=== PATIENT | female | born 1960 | race Caucasian/White ===

== ENCOUNTER → 2016-09-25 | Outpatient (CLI) | payer BC ==
--- NOTE | 2016-09-27 07:38 | MM ---
Reason for exam: screening (asymptomatic). Last mammogram was performed 1 year ago. History: Patient is postmenopausal. Took hormonal contraceptives for 6 years beginning at age 18. Physical Findings: A clinical breast exam by your physician is recommended on an annual basis and results should be correlated with mammographic findings. MG Screening Mammo w CAD Bilateral CC and MLO view(s) were taken. Prior study comparison: September 16, 2015, bilateral MG screening mammo w CAD. August 30, 2014, bilateral MG screening mammo w CAD. The breast tissue is heterogeneously dense. This may lower the sensitivity of mammography. No significant changes when compared with prior studies. ASSESSMENT: Benign, BI-RAD 2 RECOMMENDATION: Routine screening mammogram of both breasts in 1 year.
== END | disposition home or self-care (01) ==
LOC: RADMAMWWP 16:26
PROVIDERS: ATTEND Obstetrics & Gynecology
DX: Z12.31 Encounter for screening mammogram for malignant neoplasm of breast (principal)

== ENCOUNTER → 2017-10-15 | Outpatient (CLI) | payer BC ==
--- NOTE | 2017-10-17 13:10 | MM ---
Reason for exam: screening (asymptomatic). Last mammogram was performed 1 year and 1 month ago. History: Patient is postmenopausal. Took hormonal contraceptives for 6 years beginning at age 18. Physical Findings: A clinical breast exam by your physician is recommended on an annual basis and results should be correlated with mammographic findings. MG Screening Mammo w CAD Bilateral CC and MLO view(s) were taken. Prior study comparison: September 25, 2016, bilateral MG screening mammo w CAD. September 16, 2015, bilateral MG screening mammo w CAD. The breast tissue is heterogeneously dense. This may lower the sensitivity of mammography. Inferior left breast regional calcifications were present previously. No significant changes when compared with prior studies. ASSESSMENT: Negative, BI-RAD 1 RECOMMENDATION: Routine screening mammogram of both breasts in 1 year.
== END | disposition home or self-care (01) ==
LOC: RADMAMWWP 15:07
PROVIDERS: ATTEND Obstetrics & Gynecology
DX: Z12.31 Encounter for screening mammogram for malignant neoplasm of breast (principal)
CPT/HCPCS: 77067

== ENCOUNTER → 2018-01-06 | Outpatient (CLI) | payer BC ==
--- NOTE | 2018-01-07 09:05 | BD ---
EXAMINATION TYPE: Axial Bone Density DATE OF EXAM: 01/06/2018 COMPARISON: DEXA bone scan September 19, 2012 CLINICAL HISTORY: Age-related osteoporosis per order Height: 63 Weight: 174.6 FRAX RISK QUESTIONS: Alcohol (3 or more units per day): no Family History (Parent hip fracture): no Glucocorticoids (More than 3mos): no (Ex: prednisone, prednisolone, methylprednisolone, dexamethasone, and hydrocortisone). History of Fracture in Adulthood: no Secondary Osteoporosis: 1. Type 1 Diabetes: no 2. Hyperthyroidism: no 3. Menopause before 45: yes 4. Malnutrition: no 5. Chronic liver disease: no Rheumatoid Arthritis: no Current Tobacco Use: no RISK FACTORS HISTORY OF: Family History of Osteoporosis: yes Active: yes Diet low in dairy products/other sources of calcium: no Postmenopausal woman: hysterectomy 1995 Lost more than 2 inches in height since high school: no Frequent falls: no MEDICATIONS: metformin, Toprol, cholesterol meds Additional History: EXAM MEASUREMENTS: Bone mineral densitometry was performed using the [employer] System. Bone mineral density as measured about the Lumbar spine is: ----- L1-L4(G/cm2): 1.506 T Score Values are as follows: ----- L2: 3.3 ----- L3: 2.9 ----- L4: 2.1 ----- L1-L4: 2.7 Bone mineral density has: decreased -3.1 % since study of: 09.19.2012 Bone mineral density about the R hip (g/cm2): 1.265 Bone mineral density about the L hip (g/cm2): 1.363 T Score values are as follows: -----R Neck: 1.6 -----L Neck: 2.3 -----R Total: 1.6 -----L Total: 1.6 Bone mineral density has: decreased -2.3 % since study of: 09.19.2012 IMPRESSION: Normal (Values between +1 and -1 indicate normal bone mass). Consider repeating this study in 5 year s or sooner if there is some new clinical indication. NOTE: T-SCORE=SD OF THE YOUNG ADULT MEAN.
== END | disposition home or self-care (01) ==
LOC: RADBDWWP 15:59
PROVIDERS: ATTEND Internal Medicine Geriatric Medicine
DX: M81.0 Age-related osteoporosis without current pathological fracture (principal)
CPT/HCPCS: 77080

== ENCOUNTER → 2018-12-03 | Outpatient (CLI) | payer BC ==
--- NOTE | 2018-12-04 11:49 | MM ---
Reason for exam: screening (asymptomatic). Last mammogram was performed 1 year and 2 months ago. History: Patient is postmenopausal. Took hormonal contraceptives for 6 years beginning at age 18. Physical Findings: A clinical breast exam by your physician is recommended on an annual basis and results should be correlated with mammographic findings. MG Screening Mammo w CAD Bilateral CC and MLO view(s) were taken. Prior study comparison: October 15, 2017, bilateral MG screening mammo w CAD. September 25, 2016, bilateral MG screening mammo w CAD. The breast tissue is heterogeneously dense. This may lower the sensitivity of mammography. No significant changes when compared with prior studies. ASSESSMENT: Negative, BI-RAD 1 RECOMMENDATION: Routine screening mammogram of both breasts in 1 year. Patient should continue monthly self breast exams. A negative report should not preclude additional follow up of suspicious palpable abnormalities.
== END ==
LOC: RADMAMWWP 15:34
PROVIDERS: ATTEND Obstetrics & Gynecology
DX: Z12.31 Encounter for screening mammogram for malignant neoplasm of breast (principal)
CPT/HCPCS: 77067

== ENCOUNTER → 2020-03-02 | Outpatient (CLI) | payer BC ==
--- NOTE | 2020-03-03 12:17 | MM ---
Reason for exam: screening (asymptomatic). Last mammogram was performed 1 year and 3 months ago. History: Patient is postmenopausal and history of other cancer. Took hormonal contraceptives for 6 years beginning at age 18. Physical Findings: A clinical breast exam by your physician is recommended on an annual basis and results should be correlated with mammographic findings. MG Screening Mammo w CAD Bilateral CC and MLO view(s) were taken. Prior study comparison: December 03, 2018, bilateral MG screening mammo w CAD. October 15, 2017, bilateral MG screening mammo w CAD. The breast tissue is heterogeneously dense. This may lower the sensitivity of mammography. Benign appearing calcifications in the right breast. No significant changes when compared with prior studies. ASSESSMENT: Benign, BI-RAD 2 RECOMMENDATION: Routine screening mammogram of both breasts in 1 year.
== END | disposition home or self-care (01) ==
LOC: RADMAMWWP 09:45
PROVIDERS: ATTEND Obstetrics & Gynecology
DX: Z12.31 Encounter for screening mammogram for malignant neoplasm of breast (principal)
CPT/HCPCS: 77067

== ENCOUNTER → 2020-04-08 | Outpatient (CLI) | payer BC ==
--- NOTE | 2020-04-08 12:15 | CT ---
EXAMINATION TYPE: CT brain wo con DATE OF EXAM: 04/08/2020 COMPARISON: Syncope, collapse HISTORY: Syncope and collapse CT DLP: 1029.90 mGycm Automated exposure control for dose reduction was used. FINDINGS: There is no hemorrhage or hydrocephalus present. Vascular calcifications are present. Cortical atroph y is likely age-related. Periventricular white matter shows patchy low attenuation. Calvarium is inta ct. Inflammatory change present in the sphenoid sinus, right maxillary sinus, mastoid air cells are w ell aerated. IMPRESSION: AGE-RELATED CHANGES OF ATROPHY AND PROBABLE CHRONIC SMALL VESSEL ISCHEMIA. SINUS DISEASE.
== END | disposition home or self-care (01) ==
LOC: RADCTMAIN 11:29
PROVIDERS: ATTEND Nurse Practitioner Family
DX: G31.1 Senile degeneration of brain, not elsewhere classified (principal)
CPT/HCPCS: 70450

== ENCOUNTER → 2020-04-15 | Outpatient (CLI) | payer BC ==
--- NOTE | 2020-04-15 13:13 | US ---
EXAMINATION TYPE: US carotid duplex BILAT DATE OF EXAM: 04/15/2020 COMPARISON: NONE CLINICAL HISTORY: R55 Syncope Collapse. dizziness EXAM MEASUREMENTS: RIGHT: Peak Systolic Velocity (PSV) cm/sec ----- Right CCA: 73.9 ----- Right ICA: 102 ----- Right ECA: 104 ICA/CCA ratio: 1.38 RIGHT: End Diastole cm/sec ----- Right CCA: 20.5 ----- Right ICA: 43.5 ----- Right ECA: 24.2 LEFT: Peak Systolic Velocity (PSV) cm/sec ----- Left CCA: 90.1 ----- Left ICA: 101 ----- Left ECA: 87.8 ICA/CCA ratio: 1.12 LEFT: End Diastole cm/sec ----- Left CCA: 38.5 ----- Left ICA: 48.3 ----- Left ECA: 18.7 VERTEBRALS (direction of flow): Right Vertebral: Antegrade Left Vertebral: Antegrade Rhythm: Normal Mild plaque bilateral bifurcations. No evidence of significant stenosis IMPRESSION: 1. No significant flow-limiting stenosis Criteria for Assigning % of Stenosis / Diameter reduction (Estimation based on the indirect measurements of the internal carotid artery velocities (ICA PSV). 1. Normal (no stenosis)=ICA PSV < 125 cm/s: ratio < 2.0: ICA EDV<40 cm/s. 2. Less than 50% stenosis=ICA PSV < 125 cm/s: ratio < 2.0: ICA EDV<40 cm/s. 3. 50 to 69% stenosis=ICA PSV of 125 to 230 cm/s: ration 2.0 ? 4.0: ICA EDV 40-100 cm/s. 4. Greater than 70% stenosis to near occlusion= ICA PSV > 230 cm/s: ratio > 4.0: ICA EDV > 100 cm/s. 5. Near occlusion= ICA PSV velocities may be low or undetectable: variable ratio and ICA EDV. 6. Total occlusion=unable to detect flow.
--- NOTE | 2020-04-16 10:00 | ECHOF ---
Referral Reason:R55 syncope and collapse MEASUREMENTS -------- HEIGHT: 160.0 cm WEIGHT: 71.7 kg BP: RVIDd: 2.6 cm (< 3.3) IVSd: 1.2 cm (0.6 - 1.1) LVIDd: 3.8 cm (3.9 - 5.3) LVPWd: 1.3 cm (0.6 - 1.1) IVSs: 1.6 cm LVIDs: 2.1 cm LVPWs: 1.9 cm LAESV Index (A-L): 16.16 ml/m Ao Diam: 2.6 cm (2.0 - 3.7) AV Cusp: 2.0 cm (1.5 - 2.6) MV EXCURSION: 18.036 mm (> 18.000) MV EF SLOPE: 71 mm/s (70 - 150) EPSS: 0.6 cm MV E Chris: 0.59 m/s MV DecT: 202 ms MV A Chris: 0.73 m/s MV E/A Ratio: 0.82 RAP: 5.00 mmHg RVSP: 32.78 mmHg FINDINGS -------- This was a technically adequate study. The left ventricular size is normal. There is mild concentric left ventricular hypertrophy. Overa ll left ventricular systolic function is normal with, an EF between 55 - 60 %. The diastolic fillin g pattern is normal for the age of the patient 9.30. The right ventricle is normal in size. Normal LA size by volume 22+/-6 ml/m2. The right atrial size is normal. Interatrial septal aneurysm. The aortic valve is trileaflet and appears structurally normal. There is no evidence of aortic regu rgitation. There is no evidence of aortic stenosis. Mild mitral regurgitation is present. Mild tricuspid regurgitation present. There is borderline pulmonary artery hypertension. The righ t ventricular systolic pressure, as measured by Doppler, is 32.78mmHg. There is no pulmonic regurgitation present. The aortic root size is normal. Normal inferior vena cava with normal inspiratory collapse consistent with estimated right atrial pre ssure of 5 mmHg. There is no pericardial effusion. CONCLUSIONS -------- 1. The left ventricular size is normal. 2. There is mild concentric left ventricular hypertrophy. 3. Overall left ventricular systolic function is normal with, an EF between 55 - 60 %. 4. The diastolic filling pattern is normal for the age of the patient 9.30 5. Interatrial septal aneurysm. 6. Mild mitral regurgitation is present. 7. Mild tricuspid regurgitation present. 8. There is borderline pulmonary artery hypertension. 9. The right ventricular systolic pressure, as measured by Doppler, is 32.78mmHg. CORPORATE SAFETY MANAGER: Mala Barry RDCS
== END | disposition home or self-care (01) ==
LOC: RADUSWWP 12:28
PROVIDERS: ATTEND Internal Medicine Geriatric Medicine
DX: R55 Syncope and collapse (principal)
CPT/HCPCS: 93306; 93880

== ENCOUNTER → 2021-04-10 | Outpatient (CLI) | payer BC ==
--- NOTE | 2021-04-12 09:48 | MM ---
Reason for exam: screening (asymptomatic). Last mammogram was performed 1 year and 1 month ago. History: Patient is postmenopausal and history of other cancer. Took hormonal contraceptives for 6 years beginning at age 18. Physical Findings: A clinical breast exam by your physician is recommended on an annual basis and results should be correlated with mammographic findings. MG Screening Mammo w CAD Bilateral CC and MLO view(s) were taken. Prior study comparison: March 02, 2020, bilateral MG screening mammo w CAD. December 03, 2018, bilateral MG screening mammo w CAD. The breast tissue is extremely dense which could obscure a lesion on mammography. No significant changes when compared with prior studies. ASSESSMENT: Benign, BI-RAD 2 RECOMMENDATION: Routine screening mammogram of both breasts in 1 year.
== END | disposition home or self-care (01) ==
LOC: RADMAMWWP 15:47
PROVIDERS: ATTEND Obstetrics & Gynecology
DX: Z85.89 Personal history of malignant neoplasm of other organs and systems (principal)
CPT/HCPCS: 77067

== ENCOUNTER 2021-04-26 10:09 | Inpatient (IN) | payer BC ==
[2021-04-26] MEDS ORDERED: SODIUM CHLORIDE 0.9% 1,000 ML IV STA (10:38)
--- NOTE | 2021-04-26 10:43 | ED ---
Dizziness HPI - General Chief Complaint: Dizziness Stated Complaint: dehydration Time Seen by Provider: 04/26/21 10:21 Source: patient, RN notes reviewed Mode of arrival: wheelchair Limitations: no limitations - History of Present Illness Initial Comments: 61-year-old female who presents with complaints of dizziness weakness rhinorrhea decreased oral intake nausea vomiting no stools she states she's had a probable loose stools for many years however she has nausea vomiting decreased oral intake she is noted upon arrival have a low blood pressure. She does states she had bleeding recently quit drinking 4 days ago. She also states his symptoms started the previous day. She does also state that when she tries walking at times her left leg shakes a bit. No fevers or sweats. No recent falls no head neck or back pain. The loss of function to her upper or lower extremities. MD Complaint: dizziness, lightheadedness, difficulty walking, other - Related Data Home Medications Medication Instructions Recorded Confirmed Loratadine [Claritin] 10 mg PO DAILY 04/26/21 04/26/21 Metoprolol Succinate (ER) [Toprol 50 mg PO DAILY 04/26/21 04/26/21 Xl] Pseudoephedrine [Sudafed] 30 mg PO Q4H PRN 04/26/21 04/26/21 Simvastatin [Zocor] 20 mg PO HS 04/26/21 04/26/21 lisinopriL 20 mg PO DAILY 04/26/21 04/26/21 metFORMIN HCL [Glucophage XR] 750 mg PO DAILY 04/26/21 04/26/21 Allergies Allergy/AdvReac Type Severity Reaction Status Date / Time Sulfa (Sulfonamide Allergy Unknown Verified 04/26/21 11:21 Antibiotics) Childhood Review of Systems ROS Statement: Those systems with pertinent positive or pertinent negative responses have been documented in the HPI. ROS Other: All systems not noted in ROS Statement are negative. Past Medical History Past Medical History: Diabetes Mellitus, Hypertension History of Any Multi-Drug Resistant Organisms: None Reported Past Surgical History: Hysterectomy, Tubal Ligation Past Psychological History: No Psychological Hx Reported Smoking Status: Never smoker Past Alcohol Use History: Daily, Heavy Past Drug Use History: None Reported General Exam - General Exam Comments Initial Comments: This a well-developed well-nourished awake alert oriented 3 female Limitations: no limitations General appearance: alert, in no apparent distress Head exam: Present: atraumatic, normocephalic, normal inspection Eye exam: Present: normal appearance, PERRL, EOMI. Absent: scleral icterus, conjunctival injection, periorbital swelling ENT exam: Present: mucous membranes dry Neck exam: Present: normal inspection. Absent: tenderness, meningismus, lymphadenopathy Respiratory exam: Present: normal lung sounds bilaterally. Absent: respiratory distress, wheezes, rales, rhonchi, stridor Cardiovascular Exam: Present: regular rate, normal rhythm, normal heart sounds. Absent: systolic murmur, diastolic murmur, rubs, gallop, clicks GI/Abdominal exam: Present: soft, normal bowel sounds. Absent: distended, tenderness, guarding, rebound, rigid Extremities exam: Present: normal inspection, full ROM, normal capillary refill. Absent: tenderness, pedal edema, joint swelling, calf tenderness Back exam: Present: normal inspection Neurological exam: Present: alert, oriented X3, CN II-XII intact Psychiatric exam: Present: normal affect, normal mood Skin exam: Present: warm, dry, intact, normal color. Absent: rash Course Vital Signs 04/26/21 04/26/21 04/26/21 10:12 11:00 11:30 Temperature 98.6 F Pulse Rate 82 77 73 Respiratory 18 18 16 Rate Blood Pressure 85/55 98/62 93/53 O2 Sat by Pulse 100 99 100 Oximetry 04/26/21 04/26/21 04/26/21 12:00 12:30 13:00 Temperature Pulse Rate 76 79 81 Respiratory 16 18 18 Rate Blood Pressure 98/61 96/58 92/56 O2 Sat by Pulse 99 100 100 Oximetry EKG Findings - EKG Results: EKG: interpreted by [facility], sinus rhythm (Sinus rhythm 80 VA interval 180 QRS duration 102 QT since QTC 42/[address] configuration inferior and an terior leads) Medical Decision Making - Medical Decision Making I did discuss [employer] the patient family as well as with Dr. Mata patient be admitted for inpatient evaluation of acute kidney injury dehydration suspected alcohol withdrawal. Lactic acid elevation likely secondary to dehydration no infectious processes identified at this time - Lab Data Result diagrams: 04/26/21 10:50 04/26/21 10:50 Lab Results 04/26/21 04/26/21 04/26/21 Range/Units 10:50 10:50 10:50 WBC 4.2 (3.8-10.6) k/uL RBC 3.25 L (3.80-5.40) m/uL Hgb 11.7 (11.4-16.0) gm/dL Hct 34.4 (34.0-46.0) % MCV 105.7 H (80.0-100.0) fL MCH 36.1 H (25.0-35.0) pg MCHC 34.1 (31.0-37.0) g/dL RDW 20.6 H (11.5-15.5) % Plt Count 90 L (150-450) k/uL MPV 9.9 Neutrophils % 62 % Lymphocytes % 21 % Monocytes % 11 % Eosinophils % 2 % Basophils % 1 % Neutrophils # 2.6 (1.3-7.7) k/uL Lymphocytes # 0.9 L (1.0-4.8) k/uL Monocytes # 0.5 (0-1.0) k/uL Eosinophils # 0.1 (0-0.7) k/uL Basophils # 0.0 (0-0.2) k/uL Manual Slide Review Performed Anisocytosis Moderate Macrocytosis Marked A Sodium 129 L (137-145) mmol/L Potassium 4.2 (3.5-5.1) mmol/L Chloride 91 L (98-107) mmol/L Carbon Dioxide 25 (22-30) mmol/L Anion Gap 13 mmol/L BUN 28 H (7-17) mg/dL Creatinine 2.49 H (0.52-1.04) mg/dL Est GFR (CKD-EPI)AfAm 23 (>60 ml/min/1.73 sqM) Est GFR (CKD-EPI)NonAf 20 (>60 ml/min/1.73 sqM) Glucose 282 H (74-99) mg/dL Lactic Ac Sepsis Rflx Plasma Lactic Acid [place] (0.7-2.0) mmol/L Calcium 9.7 (8.4-10.2) mg/dL Magnesium 0.9 L* (1.6-2.3) mg/dL Total Bilirubin 1.1 (0.2-1.3) mg/dL AST 48 H (14-36) U/L ALT 46 H (4-34) U/L Alkaline Phosphatase 98 (38-126) U/L Ammonia (<30) umol/L Creatine Kinase 145 H (30-135) U/L Troponin I (0.000-0.034) ng/mL Total Protein 6.5 (6.3-8.2) g/dL Albumin 4.0 (3.5-5.0) g/dL Lipase 413 H (23-300) U/L Urine Color Light Yellow Urine Appearance Clear (Clear) Urine pH 5.0 (5.0-8.0) Ur Specific [place] 1.005 (1.001-1.035) Urine Protein Negative (Negative) Urine Glucose (UA) Negative (Negative) Urine Ketones Negative (Negative) Urine Blood Negative (Negative) Urine Nitrite Negative (Negative) Urine Bilirubin Negative (Negative) Urine Urobilinogen <2.0 (<2.0) mg/dL Ur Leukocyte Esterase Negative (Negative) Serum Alcohol <10 mg/dL Influenza Type A (PCR) (Not Detectd) Influenza Type B (PCR) (Not Detectd) RSV (PCR) (Not Detectd) SARS-CoV-2 (PCR) (Not Detectd) 04/26/21 04/26/21 04/26/21 Range/Units 10:50 10:50 10:50 WBC (3.8-10.6) k/uL RBC (3.80-5.40) m/uL Hgb (11.4-16.0) gm/dL Hct (34.0-46.0) % MCV (80.0-100.0) fL MCH (25.0-35.0) pg MCHC (31.0-37.0) g/dL RDW (11.5-15.5) % Plt Count (150-450) k/uL MPV Neutrophils % % Lymphocytes % % Monocytes % % Eosinophils % % Basophils % % Neutrophils # (1.3-7.7) k/uL Lymphocytes # (1.0-4.8) k/uL Monocytes # (0-1.0) k/uL Eosinophils # (0-0.7) k/uL Basophils # (0-0.2) k/uL Manual Slide Review Anisocytosis Macrocytosis Sodium (137-145) mmol/L Potassium (3.5-5.1) mmol/L Chloride (98-107) mmol/L Carbon Dioxide (22-30) mmol/L Anion Gap mmol/L BUN (7-17) mg/dL Creatinine (0.52-1.04) mg/dL Est GFR (CKD-EPI)AfAm (>60 ml/min/1.73 sqM) Est GFR (CKD-EPI)NonAf (>60 ml/min/1.73 sqM) Glucose (74-99) mg/dL Lactic Ac Sepsis Rflx Plasma Lactic Acid [place] 3.4 H* (0.7-2.0) mmol/L Calcium (8.4-10.2) mg/dL Magnesium (1.6-2.3) mg/dL Total Bilirubin (0.2-1.3) mg/dL AST (14-36) U/L ALT (4-34) U/L Alkaline Phosphatase (38-126) U/L Ammonia <9 (<30) umol/L Creatine Kinase (30-135) U/L Troponin I <0.012 (0.000-0.034) ng/mL Total Protein (6.3-8.2) g/dL Albumin (3.5-5.0) g/dL Lipase (23-300) U/L Urine Color Urine Appearance (Clear) Urine pH (5.0-8.0) Ur Specific [place] (1.001-1.035) Urine Protein (Negative) Urine Glucose (UA) (Negative) Urine Ketones (Negative) Urine Blood (Negative) Urine Nitrite (Negative) Urine Bilirubin (Negative) Urine Urobilinogen (<2.0) mg/dL Ur Leukocyte Esterase (Negative) Serum Alcohol mg/dL Influenza Type A (PCR) Not Detected (Not Detectd) Influenza Type B (PCR) Not Detected (Not Detectd) RSV (PCR) Not Detected (Not Detectd) SARS-CoV-2 (PCR) Not Detected (Not Detectd) 04/26/21 Range/Units 11:24 WBC (3.8-10.6) k/uL RBC (3.80-5.40) m/uL Hgb (11.4-16.0) gm/dL Hct (34.0-46.0) % MCV (80.0-100.0) fL MCH (25.0-35.0) pg MCHC (31.0-37.0) g/dL RDW (11.5-15.5) % Plt Count (150-450) k/uL MPV Neutrophils % % Lymphocytes % % Monocytes % % Eosinophils % % Basophils % % Neutrophils # (1.3-7.7) k/uL Lymphocytes # (1.0-4.8) k/uL Monocytes # (0-1.0) k/uL Eosinophils # (0-0.7) k/uL Basophils # (0-0.2) k/uL Manual Slide Review Anisocytosis Macrocytosis Sodium (137-145) mmol/L Potassium (3.5-5.1) mmol/L Chloride (98-107) mmol/L Carbon Dioxide (22-30) mmol/L Anion Gap mmol/L BUN (7-17) mg/dL Creatinine (0.52-1.04) mg/dL Est GFR (CKD-EPI)AfAm (>60 ml/min/1.73 sqM) Est GFR (CKD-EPI)NonAf (>60 ml/min/1.73 sqM) Glucose (74-99) mg/dL Lactic Ac Sepsis Rflx Y Plasma Lactic Acid [place] (0.7-2.0) mmol/L Calcium (8.4-10.2) mg/dL Magnesium (1.6-2.3) mg/dL Total Bilirubin (0.2-1.3) mg/dL AST (14-36) U/L ALT (4-34) U/L Alkaline Phosphatase (38-126) U/L Ammonia (<30) umol/L Creatine Kinase (30-135) U/L Troponin I (0.000-0.034) ng/mL Total Protein (6.3-8.2) g/dL Albumin (3.5-5.0) g/dL Lipase (23-300) U/L Urine Color Urine Appearance (Clear) Urine pH (5.0-8.0) Ur Specific [place] (1.001-1.035) Urine Protein (Negative) Urine Glucose (UA) (Negative) Urine Ketones (Negative) Urine Blood (Negative) Urine Nitrite (Negative) Urine Bilirubin (Negative) Urine Urobilinogen (<2.0) mg/dL Ur Leukocyte Esterase (Negative) Serum Alcohol mg/dL Influenza Type A (PCR) (Not Detectd) Influenza Type B (PCR) (Not Detectd) RSV (PCR) (Not Detectd) SARS-CoV-2 (PCR) (Not Detectd) - Radiology Data Radiology results: report reviewed (Imaging no acute findings), image reviewed Disposition Clinical Impression: Orthostatic hypotension, Dehydration, Hypomagnesemia syndrome, Acute kidney injury, Alcohol withdrawal Disposition: ADMITTED IP TO THIS HOSP Condition: Fair Referrals: Gurmeet Pimentel MD [Primary Care Provider] - 1-2 days
[2021-04-26] MEDS: SODIUM CHLORIDE 0.9% 1,000 ML IV STA ×2 (10:55→21:14)
[2021-04-26 11:20] LABS: Anisocytosis Moderate; Basophils % (A) 1 %; Eosinophils # (A) 0.1 k/uL (0-0.7); Eosinophils % (A) 2 %; HCT 34.4 % (34.0-46.0); HGB 11.7 gm/dL (11.4-16.0); Lymphocytes # (A) 0.9 k/uL (1.0-4.8); Lymphocytes % (A) 21 %; MCH 36.1 pg (25.0-35.0); MCHC 34.1 g/dL (31.0-37.0); MCV 105.7 fL (80.0-100.0); Macrocytosis Marked; Mean Platelet Volume 9.9; Monocytes # (A) 0.5 k/uL (0-1.0); Monocytes % (A) 11 %; Neutrophils # (A) 2.6 k/uL (1.3-7.7); Neutrophils % (A) 62 %; RBC 3.25 m/uL (3.80-5.40); RDW 20.6 % (11.5-15.5); WBC 4.2 k/uL (3.8-10.6)
[2021-04-26 11:23] LABS: Lactic Acid, Venous 3.4 mmol/L (0.7-2.0)
[2021-04-26 11:26] LABS: ALT 46 U/L (4-34); AST 48 U/L (14-36); African American GFR (CKD) 23 (>60 ml/min/1.73 sqM); Alcohol <10 mg/dL; Alkaline Phosphatase 98 U/L (38-126); Anion Gap 13 mmol/L; Blood Urea Nitrogen 28 mg/dL (7-17); Calcium 9.7 mg/dL (8.4-10.2); Carbon Dioxide 25 mmol/L (22-30); Chloride 91 mmol/L (98-107); Creatine Kinase 145 U/L (30-135); Glucose 282 mg/dL (74-99); Lipase 413 U/L (23-300); Non-African American GFR(CKD) 20 (>60 ml/min/1.73 sqM); Potassium 4.2 mmol/L (3.5-5.1); Sodium 129 mmol/L (137-145); Total Bilirubin 1.1 mg/dL (0.2-1.3); Total Protein 6.5 g/dL (6.3-8.2)
[2021-04-26 11:30] LABS: Magnesium 0.9 mg/dL (1.6-2.3)
--- NOTE | 2021-04-26 11:31 | XR ---
EXAMINATION TYPE: XR chest 2V DATE OF EXAM: 04/26/2021 COMPARISON: NONE HISTORY: Dizziness and weakness. TECHNIQUE: Frontal and lateral views of the chest are obtained. FINDINGS: There is no focal air space opacity, pleural effusion, or pneumothorax seen. The cardiac silhouette size is within normal limits. The osseous structures are intact. Overlying EKG leads. IMPRESSION: No acute process.
[2021-04-26] MEDS: MAGNESIUM SULFATE-D5W PMX 1 GM in DEXTROSE/WATER 1 100ML.BAG IVPB SCH ×2 (13:06→14:15)
[2021-04-26 13:14] LABS: Appearance,Urine Clear (Clear); Bilirubin,Urine Negative (Negative); Blood,Urine Negative (Negative); Color,Urine Light Yellow; Glucose,Urine (UA) Negative (Negative); Ketones,Urine Negative (Negative); Leukocyte Esterase,Urine Negative (Negative); Nitrite,Urine Negative (Negative); Protein,Urine Negative (Negative); Specific Gravity,Urine 1.005 (1.001-1.035); Urobilinogen,Urine <2.0 mg/dL (<2.0)
[2021-04-26 13:46] LABS: Platelet Count 90 k/uL (150-450)
[2021-04-26] MEDS ORDERED: NALOXONE 0.4 MG/ML 1 ML VIAL IV PRN (14:42)
[2021-04-26] MEDS ORDERED: PSEUDOEPHEDRINE 30 MG TAB PO PRN (14:44)
[2021-04-26] MEDS ORDERED: SODIUM CHLORIDE 0.9% 1,000 ML with MVI, ADULT NO.4 WITH VIT K 10 ML, THIAMINE 100 MG, F... IV ONE ×4 (15:00)
[2021-04-26] MEDS: SODIUM CHLORIDE 0.9% 1,000 ML IV SCH (15:50)
[2021-04-26] MEDS ORDERED: SODIUM CHLORIDE 0.9% 1,000 ML IV ONE (20:48)
[2021-04-26] MEDS ORDERED: ATORVASTATIN 10 MG TAB PO SCH (21:00)
[2021-04-27] MEDS: SODIUM CHLORIDE 0.9% 1,000 ML IV SCH ×3 (01:09→14:59)
[2021-04-27 03:52] LABS: Glucose,Whole Blood 128 mg/dL (75-99)
[2021-04-27 07:05] LABS: Glucose,Whole Blood 121 mg/dL (75-99)
[2021-04-27] MEDS ORDERED: metFORMIN 500 MG TAB PO SCH (07:30)
[2021-04-27] MEDS ORDERED: METOPROLOL SUCCINATE (ER) 50 MG TAB.ER.24H PO SCH (09:00)
[2021-04-27] MEDS ORDERED: LORATADINE 10 MG TAB PO SCH (09:00)
[2021-04-27 09:53] LABS: Anisocytosis Moderate; HCT 30.1 % (34.0-46.0); HGB 10.2 gm/dL (11.4-16.0); MCH 37.2 pg (25.0-35.0); MCHC 33.8 g/dL (31.0-37.0); MCV 110.3 fL (80.0-100.0); Mean Platelet Volume 8.9; Platelet Count 69 k/uL (150-450); RBC 2.73 m/uL (3.80-5.40); RDW 20.3 % (11.5-15.5); WBC 2.5 k/uL (3.8-10.6)
[2021-04-27 10:18] LABS: Macrocytosis Marked
[2021-04-27 10:25] LABS: ALT 45 U/L (4-34); AST 56 U/L (14-36); African American GFR (CKD) 36 (>60 ml/min/1.73 sqM); Albumin 3.7 g/dL (3.5-5.0); Albumin/Globulin Ratio 1.5; Alkaline Phosphatase 93 U/L (38-126); Anion Gap 9 mmol/L; Blood Urea Nitrogen 20 mg/dL (7-17); Calcium 8.8 mg/dL (8.4-10.2); Carbon Dioxide 22 mmol/L (22-30); Chloride 105 mmol/L (98-107); Globulin 2.4 g/dL; Glucose 160 mg/dL (74-99); Magnesium 1.5 mg/dL (1.6-2.3); Non-African American GFR(CKD) 31 (>60 ml/min/1.73 sqM); Potassium 4.5 mmol/L (3.5-5.1); Sodium 136 mmol/L (137-145); Total Bilirubin 0.9 mg/dL (0.2-1.3); Total Protein 6.1 g/dL (6.3-8.2)
[2021-04-27 12:09] LABS: Glucose,Whole Blood 137 mg/dL (75-99)
[2021-04-27 12:14] VITALS: BP 101/67; PULSE 92; RESP 17; TEMP 97.8
[2021-04-27] MEDS: MAGNESIUM SULFATE-D5W PMX 1 GM in DEXTROSE/WATER 1 100ML.BAG IVPB SCH ×2 (13:01→14:06)
--- NOTE | 2021-04-28 07:37 | P.HPIM ---
History of Present Illness H&P Date: 04/27/21 HISTORY AND PHYSICAL AND DISCHARGE SUMMARY: HISTORY OF PRESENT ILLNESS This is a 61-year-old female patient of Dr. Pimentel with past medical history of hypertension, diabetes mellitus type 2, seasonal ALLERGIES. Patient states she started drinking alcohol heavily since October of this year. She came into the hospital due to vomiting but denies any blood in her stools, no blood in her vomit. She denies any history of cirrhosis or liver disease. She denies lightheadedness or dizziness. Her initial blood pressure was 85/55 with heart rate of 82. EKG was a sinus rhythm with no acute ST changes. WBC 4.2, hemoglobin 11.7, platelet count 90. Sodium 129, potassium 4.2, chloride 91, CO2 25, BUN 28 and creatinine 2.49. Blood sugar 282. Lactic acid 3.4 with final 1.3. Magnesium 0.9. AST 48, ALT 46, CK 145. Troponin negative. Lipase 413. Urinalysis negative for infection. Alcohol less than 10. Influenza, RSV, SARS all negative. She was given 1 L of IV fluid, magnesium replacement and she was feeling much better in the morning her gait was steady and she continued to deny any lightheadedness or dizziness. Repeat blood work on 04/27 revealed WBC 2.5, hemoglobin 10.2, platelet count 69. Sodium 136, potassium 4.5, chloride 105, CO2 22, BUN 20 and creatinine 1.74. Blood sugar 160. Magnesium 1.5. Total bilirubin 0.9, AST 56, ALT 45, alkaline phosphatase 93. Patient was given 2 more grams of magnesium and was discharged home in stable condition. REVIEW OF SYSTEMS Constitutional: No fever, no chills, no night sweats. No weight change. No weakness, fatigue or lethargy. No daytime sleepiness. EENT: No headache. No blurred vision or double vision, no loss of vision. No loss of Hearing, no ringing in the ears, no dizziness. No nasal drainage or congestion. No epistaxis. No sore throat. Lungs: No shortness of breath, cough, no sputum production. No wheezing. Cardiovascular: No chest pain, no lower extremity edema. No palpitations. No paroxysmal nocturnal dyspnea. No orthopnea. No lightheadedness or dizziness. No syncopal episodes. Abdominal: No abdominal pain. Reports nausea, reportsvomiting. No diarrhea. No constipation. No bloody or tarry stools.. No loss of appetite. Genitourinary: No dysuria, increased frequency, urgency. No urinary retention. Musculoskeletal: No myalgias. No muscle weakness, no gait dysfunction, no frequent falls. No back pain. No neck pain. Integumentary: No wounds, no lesions. No rash or pruritus. No unusual bruising. No change in hair or nails. Neurologic: No aphasia. No facial droop. No change in mentation. No head injury. No headache. No paralysis. No paresthesia. Psychiatric: No depression. No anxiety. No mood swings. Endocrine: No abnormal blood sugars. No weight change. No excessive sweating or thirst. No cold intolerance. SOCIAL HISTORY Patient denies any history of smoking, no marijuana use or illicit drug use. She drinks 4 alcoholic beverages per day since October. She lives at home with her . FAMILY HISTORY Mother is alive with history of atrial fibrillation. Father at age 59 from colon cancer. Patient has 1 brother that passed at age 55 from a CVA. She has 1 sister with no major medical problems. She has one son that is 36 years old with no major medical problems. PHYSICAL EXAMINATION Gen: This is a 61-year-old female. Patient is noted to be walking in her room and gait is steady, no acute distress HEENT: Head is atraumatic, normocephalic. Pupils equal, round. Sclerae is anicteric. NECK: Supple. No JVD. No lymphadenopathy. No thyromegaly. LUNGS: Clear to auscultation. No wheezes or rhonchi. No intercostal retractions. HEART: Regular rate and rhythm. No murmur. ABDOMEN: Soft. Bowel sounds are present. No masses. No tenderness. EXTREMITIES: No pedal edema. No calf tenderness. NEUROLOGICAL: Patient is awake, alert and oriented x3. Cranial nerves 2 through 12 are grossly intact. ASSESSMENT AND PLAN 1. Nausea and vomiting of unclear etiology possible gastritis from alcohol use. Patient has been instructed to abstain from alcohol. 2. Electrolyte abnormality with hyponatremia and hypomagnesemia status post replacement and improved. 3. Acute kidney injury with chronic kidney disease stage III, improved. 4. Lactic acidosis secondary to acute kidney injury. 5. Thrombocytopenia most likely secondary to bone marrow suppression from alcohol abuse. Patient will have follow-up with Dr. Pimentel in the office for repeat blood work 6. Alcohol abuse. Discussed need for cessation. 7. Diabetes mellitus type 2. 8. Seasonal ALLERGIES Patient will be admitted to the hospital for a minimum of 1 night stay. DISCHARGE PLAN Home. DISCHARGE MEDICATIONS Loratadine [Claritin] 10 mg PO DAILY 04/26/21 [History] Metoprolol Succinate (ER) [Toprol XL] 50 mg PO DAILY 04/26/21 [History] Pseudoephedrine [Sudafed] 30 mg PO Q4H PRN 04/26/21 [History] Linagliptin [Tradjenta] 5 mg PO DAILY #30 tab 04/27/21 [Rx] Thiamine [Vitamin B-1] 100 mg PO DAILY #30 tablet 04/27/21 [Rx] Impression and plan of care have been directed as dictated by the signing physician. Aby Phillips nurse practitioner acting as scribe for signing physician. Past Medical History Past Medical History: Diabetes Mellitus, Hyperlipidemia, Hypertension History of Any Multi-Drug Resistant Organisms: None Reported Past Surgical History: Hysterectomy, Tubal Ligation Past Anesthesia/Blood Transfusion Reactions: No Reported Reaction Past Psychological History: No Psychological Hx Reported Smoking Status: Never smoker Past Alcohol Use History: Daily, Heavy Past Drug Use History: None Reported Medications and Allergies Home Medications Medication Instructions Recorded Confirmed Type Loratadine [Claritin] 10 mg PO DAILY 04/26/21 04/26/21 History Metoprolol Succinate (ER) [Toprol 50 mg PO DAILY 04/26/21 04/26/21 History XL] Pseudoephedrine [Sudafed] 30 mg PO Q4H PRN 04/26/21 04/26/21 History Linagliptin [Tradjenta] 5 mg PO DAILY #30 tab 04/27/21 Rx Thiamine [Vitamin B-1] 100 mg PO DAILY #30 tablet 04/27/21 Rx Allergies Allergy/AdvReac Type Severity Reaction Status Date / Time Sulfa (Sulfonamide Allergy Unknown Verified 04/26/21 11:21 Antibiotics) Childhood Physical Exam Vitals: Vital Signs Temp Pulse Pulse Resp BP BP Pulse Ox 04/27/21 07:18 86 117/75 04/27/21 05:00 98 F 80 16 102/68 98 04/27/21 03:21 83/52 04/26/21 23:25 91/60 04/26/21 23:10 97.9 F 92 16 79/52 97 04/26/21 20:10 92/60 04/26/21 20:00 97.8 F 92 16 82/51 97 04/26/21 18:05 82 18 04/26/21 16:57 98.3 F 82 18 100/66 98 04/26/21 16:26 97.9 F 79 18 95/51 98 04/26/21 16:18 98 F 80 16 104/68 97 04/26/21 15:30 80 18 91/54 98 04/26/21 15:00 80 16 97/58 97 04/26/21 14:00 75 16 96/52 99 04/26/21 13:30 79 18 90/42 98 04/26/21 13:00 81 18 92/56 100 04/26/21 12:30 79 18 96/58 100 04/26/21 12:00 76 16 98/61 99 04/26/21 11:30 73 16 93/53 100 04/26/21 11:00 77 18 98/62 99 04/26/21 10:12 98.6 F 82 18 85/55 100 Intake and Output 04/26/21 04/27/21 04/27/21 22:59 06:59 14:59 Intake Total 2039 Balance 2039 Intake: Intake, IV Titration 2040 Amount Sodium Chloride 0.9% 1, 1040 000 ml @ 130 mls/hr IV . Q7H42M [facility] Rx#:[id number] Sodium Chloride 0.9% 1, 1000 000 ml @ 999 mls/hr IV . Q1H1M [facility] Rx#:[id number] Other: Voiding Method Toilet Toilet # Voids 2 5 # Bowel Movements 1 Weight 78.925 kg Results CBC & Chem 7: 04/27/21 09:06 04/27/21 09:06 Labs: Abnormal Lab Results - Last 24 Hours (Table) 04/26/21 04/26/21 04/26/21 Range/Units 10:50 10:50 10:50 RBC 3.25 L (3.80-5.40) m/uL MCV 105.7 H (80.0-100.0) fL MCH 36.1 H (25.0-35.0) pg RDW 20.6 H (11.5-15.5) % Plt Count 90 L (150-450) k/uL Lymphocytes # 0.9 L (1.0-4.8) k/uL Macrocytosis Marked A Sodium 129 L (137-145) mmol/L Chloride 91 L (98-107) mmol/L BUN 28 H (7-17) mg/dL Creatinine 2.49 H (0.52-1.04) mg/dL Glucose 282 H (74-99) mg/dL POC Glucose (mg/dL) (75-99) mg/dL Plasma Lactic Acid [place] 3.4 H* (0.7-2.0) mmol/L Magnesium 0.9 L* (1.6-2.3) mg/dL AST 48 H (14-36) U/L ALT 46 H (4-34) U/L Creatine Kinase 145 H (30-135) U/L Lipase 413 H (23-300) U/L 04/26/21 04/27/21 04/27/21 Range/Units 19:06 03:51 07:03 RBC (3.80-5.40) m/uL MCV (80.0-100.0) fL MCH (25.0-35.0) pg RDW (11.5-15.5) % Plt Count (150-450) k/uL Lymphocytes # (1.0-4.8) k/uL Macrocytosis Sodium (137-145) mmol/L Chloride (98-107) mmol/L BUN (7-17) mg/dL Creatinine (0.52-1.04) mg/dL Glucose (74-99) mg/dL POC Glucose (mg/dL) 128 H 121 H (75-99) mg/dL Plasma Lactic Acid [place] 3.0 H* (0.7-2.0) mmol/L Magnesium (1.6-2.3) mg/dL AST (14-36) U/L ALT (4-34) U/L Creatine Kinase (30-135) U/L Lipase (23-300) U/L Thrombosis Risk Factor Assmnt - Choose All That Apply Any of the Below Risk Factors Present?: No Other Risk Factors: Yes Each Risk Factor Represents 2 Points: Age 61-74 years Thrombosis Risk Factor Assessment Total Risk Factor Score: 2 Thrombosis Risk Factor Assessment Level: Low Risk
== END 2021-04-27 15:49 | disposition home or self-care (01) | DRG 392 ==
LOC: EC 10:09 → 5NMEDONC 14:42
PROVIDERS: ADMIT Internal Medicine; ATTEND Internal Medicine
DX: K29.20 Alcoholic gastritis without bleeding (principal); E87.2 Acidosis; E87.1 Hypo-osmolality and hyponatremia; N17.9 Acute kidney failure, unspecified; R42 Dizziness and giddiness; E11.22 Type 2 diabetes mellitus with diabetic chronic kidney disease; E78.5 Hyperlipidemia, unspecified; I12.9 Hypertensive chronic kidney disease with stage 1 through stage 4 chronic kidney disease, or unspecified chronic kidney disease; Z20.822 Contact with and (suspected) exposure to COVID-19; J30.2 Other seasonal allergic rhinitis; N18.30 Chronic kidney disease, stage 3 unspecified; E83.42 Hypomagnesemia; E86.0 Dehydration; D69.59 Other secondary thrombocytopenia; F10.10 Alcohol abuse, uncomplicated; Z79.84 Long term (current) use of oral hypoglycemic drugs; Z80.0 Family history of malignant neoplasm of digestive organs; Z82.3 Family history of stroke; Z90.710 Acquired absence of both cervix and uterus
CPT/HCPCS: 36415; 71046; 80053; 80320; 81003; 82140; 82550; 83605; 83690; 83735; 84484; 85025; 85027; 87636; 93005; 96361; 96365; 99285